=== PATIENT | male | born 1930 | race Caucasian/White ===

== ENCOUNTER 2016-09-27 18:00 | Emergency (ER) | payer MEDICARE, MEDICAID ==
[~2016-09-27] VITALS: Ht 182.9 cm; Wt 89.1 kg
--- NOTE | 2016-09-27 18:04 | ED.REPORT ---
HPI-Trauma Minor / Fall Date of Service Sep 27, 2016 ED Provider: Dr. Delgadillo Pt is an 86 year old male who presents to the ED via EMS with concerns for multiple ground level falls over the past couple of days. He reports that he fell at home on Tuesday, and then fell again today while he was walking outside. On Tuesday, the pt was at his home when he tripped and fell forwards, complaining most significantly of rib pain. He states that he was walking outside today when he stepped off of a curb with assistance, he tripped and fell. Pt reports that his ribs, and forearm hurt from both of these falls. He denies any trauma to his head, loss of consciousness, nausea or vomiting. Nursing Notes Stated Complaint: GROUND LEVEL FALL Nursing Notes Reviewed: Yes Allergies: Coded Allergies: No Known Allergies (Unverified , 09/27/16) General Time Seen by MD: 18:03 Chief Complaint Fall Hx Obtained From: Patient Arrived By: Ambulance Onset Occurred: Just prior to arrival Symptom Duration: Since onset Caused by: Accidental Location: Chest Forearm right Quality: Painful Severity: Current: Mild Severity: Maximum: Moderate Similar Sx Previous: Yes Review of Systems Constitutional: Denies: Fever, Malaise, Weakness - generalized Respiratory: Denies: Non-productive cough, Wheezing Musculoskeletal: Reports: Extremity pain, Denies: Back pain Skin: Reports Bruising Neurologic: Denies: Change LOC, Dizziness, Headache, Syncope, Weakness Complete sys rev & neg: except as marked. Cardiovascular: Reports: Chest pain Physical Exam Initial Vital Signs Vital Signs (First) Date Time Temp Pulse Resp B/P Pulse Ox O2 Delivery O2 Flow Rate FiO2 09/27/16 18:05 36.8 97 18 134/76 99 Room Air Initial VS: Reviewed ENT: Mucous membranes moist, Conjunctiva normal, No scleral icterus Respiratory: Breath sounds normal, Clear to auscultation, No respiratory distress Cardiovascular: Regular rate & rhythm, Heart sounds normal, Intact distal pulses Abdomen / GI: Soft, Non-tender, No guarding, No rebound, No distention Skin: Warm, Dry, No cyanosis Neurologic: Alert, Oriented, Nonfocal General/Constitutional: Awake, Alert, No acute distress, Well appearing, Well developed, Well nourished, Cooperative Head / Eyes: Normocephalic, PERRL Smal bruise on the right forehead Upper Extremity / MS: Full range of motion, No swelling, No deformity, Neurologic intact, Vascular intact Bruise on right forearm Interpretation & Diagnostics Lab Results Interpretation Result Diagram: 09/27/16 1829 09/27/16 1829 Test 09/27/16 18:29 09/27/16 20:49 09/27/16 21:24 White Blood Count 11.7th/mm3 (3.8-10.1) Red Blood Count 3.69mil/mm3 (4.40-5.80) Hemoglobin 12.3g/dL (13.8-17.2) Hematocrit 36.0% (41.0-50.0) Mean Corpuscular Volume 97.6fL (81-100) Mean Corpuscular Hemoglobin 33.3pg (27.0-35.0) Mean Corpuscular Hemoglobin Concent 34.2% (32.0-37.0) Red Cell Distribution Width 12.6% (12.3-15.4) Platelet Count 138bil/L (150-400) Neutrophils (%) (Auto) 71.2% (40-74) Lymphocytes (%) (Auto) 14.9% (14-46) Monocytes (%) (Auto) 12.6% (4-12) Eosinophils (%) (Auto) 0.4% (0-5) Basophils (%) (Auto) 0.2% (0-3) Sodium Level 133mEq/L (134-144) Potassium Level 4.3mEq/L (3.5-5.2) Chloride Level 94mEq/L (97-108) Carbon Dioxide Level 21mmol/L (18-29) Blood Urea Nitrogen 9mg/dL (8-27) Creatinine 0.88mg/dL (0.76-1.27) Estimat Glomerular Filtration Rate 87mL/min (>59) Glucose Level 137mg/dL (60-99) Calcium Level 8.9mg/dL (8.5-10.1) Magnesium Level 1.4mg/dL (1.6-2.6) Total Bilirubin 1.0mg/dL (0.0-1.2) Aspartate Amino Transf (AST/SGOT) 25U/L (0-50) Alanine Aminotransferase (ALT/SGPT) 11U/L (0-44) Alkaline Phosphatase 156U/L (25-160) Total Protein 7.1g/dL (6.4-8.4) Albumin 3.5g/dL (3.4-5.0) Hold Gomez Top Tube Received (Received) Urine Color Dark yellow (YELLOW) Urine Appearance Clear (CLEAR,HAZY) Urine pH 5.5 (5.0-8.0) Urine Specific [place] 1.010 (1.003-1.035) Urine Protein Negativemg/dL (NEG,TRACE) Urine Glucose (UA) Negativemg/dL (NEGATIVE) Urine Ketones Negativemg/dL (NEGATIVE) Urine Occult Blood Negative (NEGATIVE) Urine Nitrite Negative (NEGATIVE) Urine Bilirubin Negative (NEGATIVE) Urine Urobilinogen Normalmg/dL (NORMAL) Urine Leukocyte Esterase Negative (NEGATIVE) Urine RBC 0-2/hpf (0-2) Urine WBC 0-5/hpf (0-5) Urine Epithelial Cells Moderate/hpf (NONE-MOD) Urine Crystals None seen (NONE SEEN) Urine Bacteria Few/hpf (NONE-FEW) Urine Hyaline Casts None/lpf (NONE) Urine Granular Casts None seen (NONE SEEN) Urine Waxy Casts None seen (NONE SEEN) Urine Red Blood Cell Casts None seen (NONE SEEN) Urine White Blood Cell Casts None seen (NONE SEEN) Urine Mucus None seen (None Seen) Urine Trichomonas None seen (NONE SEEN) Urine Yeast None (NONE SEEN) Urinalysis Comment None Urine Culture Reflexed Not indicated Troponin T 0.010ug/L (0.0-0.011) ECG Interpretation ECG Interpretation: SR - 90 First degree heart block Time: 18:08 Interpreted by: ED physician X-Ray Chest Interpretation Chest Xray Interpretation: IMPRESSION: 1. Left basilar atelectasis. 2. Left seventh rib fracture. Dictated by: Kaila Rogers M.D. on 09/27/2016 at 19:37 Interpretation / Wet Read by: Interpret - Radiologist CT Head Interpretation IMPRESSION: 1. No acute intracranial abnormalities. 2. Cerebral volume loss and chronic microvascular ischemic changes. 2. 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 Dictated by: Kaila Rogers M.D. on 09/27/2016 at 19:33 Interpretation / Wet Read by: Interpret - Radiologist Re-Eval/Medical Decision Source of Hx: Old records Re-Evaluation/Progress : Time of Eval: 21:02 Re-Evaluation/Progress Note: Pt is rechecked and informed of the plan to discharge him at this time. He understands and agrees, all questions are addressed. Counseled Regarding: Diagnosis, Lab results, Need for admission Discharge & Departure Impression: Primary Impression: Rib fractures Additional Impression: Head injury Disposition: Home Discharge Condition All VS Reviewed: Yes Condition: Stable Patient Instructions: Rib Fracture (ED) Additional Instructions: Your labs and imaging results were reassuring today. Take Tylenol with Codeine every 6-8 hours to help alleviate your pain. Do not drink alcohol or drive while on this medication. Follow up with your primary care provider later this week. Return to the emergency department with worsening headaches, loss of consciousness, fevers, nausea, vomiting or any other worsening or concerning symptoms. Referrals: Joon Mendoza MD (PCP) Diane Attestation Portions of this note were transcribed by Molly Johnson. I, Dr. Delgadillo personally performed the history, physical exam and medical decision-making; I reviewed and confirmed the accuracy of the information in the transcribed note. Signed by: Diane Hall, 09/27/2016 21:02 copies to: Joon Mendoza MD, Todd P DO Sep 27, 2016 18:04 FAUSTINA JOHNSON Sep 27, 2016 18:25
[2016-09-27 18:05] VITALS: BP 134/76; PULSE 97; RESP 18; O2SAT 99
[2016-09-27 18:35] LABS: BASOPHILS % (AUTO) 0.2 % (0-3); EOSINOPHILS % (AUTO) 0.4 % (0-5); MONOCYTES % (AUTO) 12.6 % (4-12); Mean Corpuscular Hemoglobin 33.3 pg (27.0-35.0); Mean Corpuscular Volume 97.6 fL (81-100); NEUTROPHILS % (AUTO) 71.2 % (40-74); Platelet Count 138 bil/L (150-400)
[2016-09-27 19:13] LABS: Magnesium 1.4 mg/dL (1.6-2.6)
[2016-09-27 19:18] LABS: TROPONIN T < 0.010 ug/L (0.0-0.011)
[2016-09-27] MEDS: fentaNYL-PF 50 mCg/mL 2 mL Inj IVPUSH PRN ×2 (19:34→19:58)
--- NOTE | 2016-09-27 19:39 | DRSVH ---
PROCEDURE: CT BRAIN WITHOUT CONTRAST ([id number]) INDICATIONS: fall, head injury TECHNIQUE: Noncontrast 4.5 mm thick angled axial sections acquired from the foramen magnum to the vertex, with c oronal reformats. COMPARISON: [facility], , CT HEAD W/O CONTRAST, 12/16/2005, 12:30. FINDINGS: Image quality: Excellent. CSF spaces: Basal cisterns are patent. No extra-axial fluid collections. The ventricles are symmet xochitl in size and shape. Brain: Encephalomalaci in the left posterior parietal lobe is consistent with old infarct. No intrac ranial bleeds or masses. There is moderate cerebral volume loss for age, with resultant ventricular and sulcal prominence. There are mild to moderate periventricular and deep white matter chronic smal l vessel ischemic changes. There is intracranial internal carotid artery atherosclerosis. Skull and face: Calvarium and visualized facial bones appear intact, without suspicious lesions. Sinuses: Visualized sinuses and mastoids are clear. IMPRESSION: 1. No acute intracranial abnormalities. 2. Cerebral volume loss and chronic microvascular ischemic changes. 2. 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 Dictated by: Kaila Rogers M.D. on 09/27/2016 at 19:33 Approved by: Kaila Rogers M.D. on 09/27/2016 at 19:37
--- NOTE | 2016-09-27 19:40 | DRSVH ---
PROCEDURE: X-RAY CHEST ONE VIEW, PORTABLE ([id number]) INDICATIONS: cp rib pain TECHNIQUE: One view of the chest was acquired. COMPARISON: None. FINDINGS: Surgical changes and devices: None. Lungs and pleura: Shallow inspiration. There is left basilar atelectasis. No pleural effusions or pn eumothorax. Mediastinum: Mediastinal contours appear normal. Heart size is normal. Bones and chest wall: Left posterior seventh rib fracture. Overlying soft tissues appear unremarkabl e. IMPRESSION: 1. Left basilar atelectasis. 2. Left seventh rib fracture. Dictated by: Kaila Rogers M.D. on 09/27/2016 at 19:37 Approved by: Kaila Rogers M.D. on 09/27/2016 at 19:39
[2016-09-27 21:05] LABS: APPEARANCE,URINE CLEAR (CLEAR,HAZY); COLOR,URINE DARK YELLOW (YELLOW); OCCULT BLOOD,URINE NEGATIVE (NEGATIVE); PH,URINE 5.5 (5.0-8.0); UROBILINOGEN,URINE NORMAL (NORMAL)
[2016-09-27 22:34] VITALS: BP 135/76; PULSE 88; RESP 20; O2SAT 97
== END 2016-09-27 22:36 | disposition home or self-care (01) ==
LOC: SED 18:00
DX: S22.32XA Fracture of one rib, left side, initial encounter for closed fracture (principal); S00.83XA Contusion of other part of head, initial encounter; S50.11XA Contusion of right forearm, initial encounter; W01.0XXA Fall on same level from slipping, tripping and stumbling without subsequent striking against object, initial encounter; Y93.01 Activity, walking, marching and hiking; Y99.8 Other external cause status; Y92.89 Other specified places as the place of occurrence of the external cause; I10 Essential (primary) hypertension
CPT/HCPCS: 36415; 70450; 71010; 80053; 81000; 83735; 84484; 85025; 93005; 96374; 99285; J3010